=== PATIENT | female | born 1985 | race Caucasian/White ===

== ENCOUNTER 2016-10-24 07:24 | Emergency (ER) | payer OTHER ==
[~2016-10-24] VITALS: Ht 160 cm; Wt 54.4 kg
[2016-10-24 07:30] VITALS: BP 128/59
--- NOTE | 2016-10-24 07:32 | PHYS DOC ---
Adult General Chief Complaint Chief Complaint: ABDOMINAL PAIN HPI HPI Patient is a 31 year old female presenting to the emergency department for evaluation of right lower abdominal pain along with nausea. Pain started yesterday morning and has persisted and worsened. Pain is sharp with no radiation that causes her nausea but no vomiting diarrhea, hematuria vaginal bleeding or vaginal discharge. She says that she has some dysuria and that she took some laxatives and that made her have loose stools. She denies any prior abdominal surgeries and she denies any prior ovarian cyst. I didn't do an ultrasound to confirm bilateral flow and she does not have torsion. Patient will need follow-up with specialist as she may have polycystic ovarian disease and she may require further hormonal treatment and possibly surgery. I explained all this to the patient and told her to come back to the ER with worsening pain but right now she feels comfortable so she will be discharged with supportive treatment. Patient aware and agreeable with plan for discharge and verbalized understanding of the need for short-term follow-up and strict ER return precautions discussed including worsening pain fevers vomiting or other general concerns. Review of Systems Review of Systems Constitutional: Denies fever or chills [] Eyes: Denies change in visual acuity, redness, or eye pain [] HENT: Denies nasal congestion or sore throat [] Respiratory: Denies cough or shortness of breath [] Cardiovascular: No additional information not addressed in HPI [] GI: + abdominal pain, nausea. No vomiting, bloody stools or diarrhea [] : + dysuria. No hematuria [] Musculoskeletal: Denies back pain or joint pain [] Integument: Denies rash or skin lesions [] Neurologic: Denies headache, focal weakness or sensory changes [] Current Medications Current Medications Current Medications Medications (Trade) Dose Ordered Sig/Cale Start Time Stop Time Status Last Admin Dose Admin Ceftriaxone Sodium 50 ml @ 100 mls/hr 1X STAT 10/24/16 08:19 10/24/16 08:48 DC 10/24/16 08:54 100 MLS/HR Dextrose/Sodium Chloride 1,000 ml @ 0 mls/hr 1X ONCE 10/24/16 08:45 10/24/16 08:46 DC 10/24/16 08:51 1,000 MLS/HR Info (Do NOT chart on this entry -- for MONITORING) 1 each PRN DAILY PRN 10/24/16 08:00 10/26/16 07:59 Iohexol (Omnipaque 300 Mg/ml) 75 ml 1X ONCE 10/24/16 08:00 10/24/16 08:01 DC 10/24/16 08:19 75 ML Ketorolac Tromethamine (Toradol) 30 mg 1X ONCE 10/24/16 09:00 10/24/16 09:01 DC 10/24/16 09:23 30 MG Morphine Sulfate 5 mg 1X ONCE 10/24/16 07:45 10/24/16 07:46 DC 10/24/16 08:04 5 MG Ondansetron HCl (Zofran) 8 mg 1X ONCE 10/24/16 07:45 10/24/16 07:46 DC 10/24/16 08:03 8 MG Oxycodone/ Acetaminophen (Percocet 5/325) 2 tab 1X ONCE 10/24/16 09:00 10/24/16 09:01 DC 10/24/16 09:22 2 TAB Sodium Chloride 1,000 ml @ 1,000 mls/hr 1X ONCE 10/24/16 07:45 10/24/16 08:44 DC 10/24/16 08:00 1,000 MLS/HR Allergies Allergies Allergies Coded Allergies Type Severity Reaction Last Updated Verified aripiprazole Allergy Severe Anaphylaxis 10/24/16 Yes escitalopram Allergy Severe Anaphylaxis 10/24/16 Yes Physical Exam Physical Exam Constitutional: Well developed, well nourished, no acute distress, non-toxic appearance. [] HENT: Normocephalic, atraumatic, bilateral external ears normal, oropharynx moist, no oral exudates, nose normal. [] Eyes: PERRLA, EOMI, conjunctiva normal, no discharge. [] Neck: Normal range of motion, no tenderness, supple, no stridor. [] Cardiovascular:Heart rate regular rhythm, no murmur [] Lungs & Thorax: Bilateral breath sounds clear to auscultation [] Abdomen: Bowel sounds normal, soft, + RLQ tenderness, no masses, no pulsatile masses. Pain to palpation is more right adnexal. She has positive Rovsing sign. Skin: Warm, dry, no erythema, no rash. [] Back: No tenderness, no CVA tenderness. [] Extremities: No tenderness, no cyanosis, no clubbing, ROM intact, no edema. [] Neurologic: Alert and oriented X 3, normal motor function, normal sensory function, no focal deficits noted. [] Current Patient Data Vital Signs Vital Signs Date Time Temp Pulse Resp B/P (MAP) Pulse Ox O2 Delivery O2 Flow Rate FiO2 10/24/16 09:22 18 10/24/16 07:30 97.7 102 128/59 (82) 97 Room Air 97.7 Lab Values Laboratory Tests Test 10/24/16 06:45 10/24/16 07:37 10/24/16 07:44 POC Urine HCG, Qualitative Hcg negative (Negative) Urine Collection Type Unknown Urine Color Shannen Urine Clarity Cloudy Urine pH 5.5 Urine Specific Aston 1.025 Urine Protein 30 mg/dL (NEG-TRACE) Urine Glucose (UA) Negative mg/dL (NEG) Urine Ketones (Stick) >=80 mg/dL (NEG) Urine Blood Large (NEG) Urine Nitrite Negative (NEG) Urine Bilirubin Moderate (NEG) Urine Urobilinogen Dipstick 0.2 mg/dL (0.2 mg/dL) Urine Leukocyte Esterase Small (NEG) Urine RBC 11-20 /HPF (0-2) Urine WBC 20-40 /HPF (0-4) Urine Squamous Epithelial Cells Many /LPF Urine Bacteria Many /HPF (0-FEW) Urine Mucus Mod /LPF White Blood Count 24.5 x10^3/uL (4.0-11.0) H Red Blood Count 5.30 x10^6/uL (3.50-5.40) Hemoglobin 15.6 g/dL (12.0-15.5) H Hematocrit 47.9 % (36.0-47.0) H Mean Corpuscular Volume 90 fL (79-100) Mean Corpuscular Hemoglobin 29 pg (25-35) Mean Corpuscular Hemoglobin Concent 33 g/dL (31-37) Red Cell Distribution Width 16.7 % (11.5-14.5) H Platelet Count 243 x10^3/uL (140-400) Neutrophils (%) (Auto) 90 % (31-73) H Lymphocytes (%) (Auto) 4 % (24-48) L Monocytes (%) (Auto) 5 % (0-9) Eosinophils (%) (Auto) 0 % (0-3) Basophils (%) (Auto) 0 % (0-3) Neutrophils # (Auto) 22.1 x10^3uL (1.8-7.7) H Lymphocytes # (Auto) 1.1 x10^3/uL (1.0-4.8) Monocytes # (Auto) 1.2 x10^3/uL (0.0-1.1) H Eosinophils # (Auto) 0.0 x10^3/uL (0.0-0.7) Basophils # (Auto) 0.1 x10^3/uL (0.0-0.2) Platelet Estimate Pending Sodium Level 138 mmol/L (136-145) Potassium Level 3.7 mmol/L (3.5-5.1) Chloride Level 102 mmol/L (98-107) Carbon Dioxide Level 22 mmol/L (21-32) Anion Gap 14 (6-14) Blood Urea Nitrogen 12 mg/dL (7-20) Creatinine 0.8 mg/dL (0.6-1.0) Estimated GFR (Cockcroft-Gault) 82.6 BUN/Creatinine Ratio 15 (6-20) Glucose Level 116 mg/dL (70-99) H Calcium Level 9.2 mg/dL (8.5-10.1) Total Bilirubin 1.3 mg/dL (0.2-1.0) H Aspartate Amino Transferase (AST) 10 U/L (15-37) L Alanine Aminotransferase (ALT) 12 U/L (14-59) L Alkaline Phosphatase 79 U/L (46-116) Creatine Kinase 33 U/L (26-192) Total Protein 8.7 g/dL (6.4-8.2) H Albumin 4.2 g/dL (3.4-5.0) Albumin/Globulin Ratio 0.9 (1.0-1.7) L Lipase 101 U/L (73-393) Laboratory Tests 10/24/16 07:44 Laboratory Tests 10/24/16 07:44 EKG EKG [] Radiology/Procedures Radiology/Procedures Indication right lower quadrant pain for one day with nausea vomiting and diarrhea. Axial images through the abdomen and pelvis were obtained. No oral contrast was administered. Approximately 75 cc of Omnipaque 300 was administered. No prior imaging is available. The lung bases are clear. The liver and spleen appear unremarkable. The gallbladder appears grossly normal. No adrenal masses are seen. There are low-density masses seen associated with both kidneys compatible with cysts. No pancreatic pathology is seen. Acute finding in the abdomen is not apparent. The right colon, particularly the cecum, is fluid-filled. Definite wall thickening or evidence of colitis is not seen. The transverse, descending and sigmoid colon appear unremarkable. There are multiple cysts seen associated with both ovaries right somewhat greater than left. Findings are suggestive of polycystic ovarian disease. The appendix is probably seen in the right lower quadrant. It appears quite small and short in nature. Secondary signs suggesting appendicitis are not seen. IMPRESSION: Multiple enlarged ovarian cysts suggesting polycystic ovarian disease. Fluid-filled right colon. No definite appendiceal pathology seen. Renal cysts. DICTATED and SIGNED BY: SHANNA CORREA MD DATE: 10/24/16 0842 Indication pelvic pain. Ovarian cysts. Assess for torsion. Transabdominal scans were obtained. Transvaginal scans were not. HCG status is uncertain but for the purposes of this dictation will be assumed to be negative. Note is made of a CT examination of the abdomen and pelvis immediately prior to the ultrasound. The uterus measures approximately 9 x 6.7 x 4.6 cm and appears unremarkable. Endometrial thickness measures approximately 1 cm. Both ovaries are enlarged. The right ovary measures approximately 9.7 x 2.9 x 4.9 cm and the left 6.6 x 3.7 x 4.2 cm. Multiple cysts are seen associated with the ovaries compatible with the findings on CT. The largest cyst on the right measures approximately 5 cm and the largest cyst on the left approximately 3.5 cm. There is normal blood flow to the ovaries (torsion can never be entirely excluded on the basis of ultrasound). The morphologic appearance of the ovaries is not suggestive of torsion. IMPRESSION: Enlarged ovaries with multiple cysts suggesting polycystic ovarian disease.. No definite evidence of torsion DICTATED and SIGNED BY: SHANNA CORREA MD DATE: 10/24/16 0932 Course & Med Decision Making Course & Med Decision Making Patient with right lower quadrant pain in addition to nausea. Given patient still has her appendix we'll go ahead and do a CT treat symptoms and reassess. Dragon Disclaimer Dragon Disclaimer This electronic medical record was generated, in whole or in part, using a voice recognition dictation system. Departure Departure Impression: Primary Impression: Ovarian cyst Additional Impressions: Abdominal pain Leukocytosis UTI (urinary tract infection) Ketonuria Disposition: HOME, SELF-CARE Condition: GOOD Referrals: ANDREAS NGUYỄN MD, MARGARET A MD Patient Instructions: Ovarian Cyst Additional Instructions: YOU NEED TO FOLLOW WITH A PCP AND BUSINESS APPLICATIONS ANALYST. DRINK PLENTY OF FLUIDS AND EAT A GOOD DIET. TAKE 400MG OF OTC IBUPROFEN EVERY 6 HOURS AND THE PERCOCET FOR BREAKTHROUGH PAIN. COME BACK TO THE ED WITH ANY NEW OR WORSENING PAIN, FEVERS, VOMITING, OR OTHER GENERAL CONCERNS. THANK YOU! Scripts Ciprofloxacin Hcl (CIPROFLOXACIN HCL) 250 Mg Tablet 1 TAB PO BID, #6 TAB Prov: RAMONE MARLOW DO 10/24/16 Ondansetron (ZOFRAN ODT) 4 Mg Tab.rapdis 4 MG PO BID Y for NAUSEA/VOMITING, #10 TAB Prov: RAMONE MARLOW DO 10/24/16 Oxycodone/Apap 5-325 (PERCOCET 5-325 MG TABLET) 1 Each Tablet 1 TAB PO PRN Q6HRS Y for PAIN, #20 TAB 0 Refills Prov: RAMONE MARLOW DO 10/24/16 Problem Qualifiers RAMONE MARLOW DO Oct 24, 2016 07:32
[2016-10-24] MEDS ORDERED: MORPHINE SULFATE 10 MG/ML VIAL. IV ONE (07:45)
[2016-10-24] MEDS ORDERED: IV NORMAL SALINE 1000ML BAG 1,000 ML IV ONE (07:45)
[2016-10-24] MEDS ORDERED: ONDANSETRON PF 4 MG/2 ML VIAL. IV ONE (07:45)
[2016-10-24 07:51] LABS: BASO # 0.1 x10^3/uL (0.0-0.2); BASO % 0 % (0-3); EOS % 0 % (0-3); HEMATOCRIT 47.9 % (36.0-47.0); HEMOGLOBIN 15.6 g/dL (12.0-15.5); LYMPH # 1.1 x10^3/uL (1.0-4.8); LYMPH % 4 % (24-48); MEAN CORPUSCULAR HEMOGLOBIN 29 pg (25-35); MEAN CORPUSCULAR HGB CONC 33 g/dL (31-37); MEAN CORPUSCULAR VOLUME 90 fL (79-100); MONO % 5 % (0-9); NEUT % 90 % (31-73); PLATELET COUNT 243 x10^3/uL (140-400); RED CELL DISTRIBUTION WIDTH 16.7 % (11.5-14.5); WHITE BLOOD COUNT 24.5 x10^3/uL (4.0-11.0)
[2016-10-24 07:52] LABS: BILIRUBIN,URINE MODERATE (NEG); GLUCOSE,URINE NEGATIVE (NEG); NITRITE,URINE NEGATIVE (NEG); PH,URINE 5.5; PROTEIN,URINE 30 mg/dL (NEG-TRACE); UROBILINOGEN,URINE 0.2 mg/dL (0.2 mg/dL)
[2016-10-24] MEDS ORDERED: CONTRAST GIVEN MC PRN (08:00)
[2016-10-24] MEDS ORDERED: IOHEXOL 300 MG/ML 75 ML VIAL IV ONE (08:00)
[2016-10-24 08:03] LABS: CALCIUM 9.2 mg/dL (8.5-10.1); CREATININE 0.8 mg/dL (0.6-1.0); GFR 82.6; POTASSIUM 3.7 mmol/L (3.5-5.1)
[2016-10-24 08:11] LABS: ALBUMIN 4.2 g/dL (3.4-5.0); ALBUMIN/GLOBULIN RATIO 0.9 (1.0-1.7); TOTAL BILIRUBIN 1.3 mg/dL (0.2-1.0); TOTAL PROTEIN 8.7 g/dL (6.4-8.2)
[2016-10-24 08:14] LABS: BACTERIA,URINE MANY /HPF (0-FEW); SQUAMOUS EPITHELIAL CELL,UR MANY /LPF; WBC,URINE 20-40 /HPF (0-4)
[2016-10-24] MEDS ORDERED: IV DEXTROSE 5 %-0.45 % NACL 500 ML IV ONE (08:30)
[2016-10-24] MEDS ORDERED: IV DEXTROSE 5 %-0.45 % NACL 1,000 ML IV ONE (08:45)
[2016-10-24] MEDS ORDERED: oxyCODONE/APAP 5/325 1 TAB TABLET PO ONE (09:00)
[2016-10-24] MEDS ORDERED: KETOROLAC TROMETHAMINE 30 MG/ML INJ. IV ONE (09:00)
--- NOTE | 2016-10-24 09:00 | RAD ---
Indication right lower quadrant pain for one day with nausea vomiting and diarrhea. Axial images through the abdomen and pelvis were obtained. No oral contrast was administered. Approximately 75 cc of Omnipaque 300 was administered. No prior imaging is available. The lung bases are clear. The liver and spleen appear unremarkable. The gallbladder appears grossly normal. No adrenal masses are seen. There are low-density masses seen associated with both kidneys compatible with cysts. No pancreatic pathology is seen. Acute finding in the abdomen is not apparent. The right colon, particularly the cecum, is fluid-filled. Definite wall thickening or evidence of colitis is not seen. The transverse, descending and sigmoid colon appear unremarkable. There are multiple cysts seen associated with both ovaries right somewhat greater than left. Findings are suggestive of polycystic ovarian disease. The appendix is probably seen in the right lower quadrant. It appears quite small and short in nature. Secondary signs suggesting appendicitis are not seen. IMPRESSION: Multiple enlarged ovarian cysts suggesting polycystic ovarian disease. Fluid-filled right colon. No definite appendiceal pathology seen. Renal cysts.
--- NOTE | 2016-10-24 09:34 | ACF ---
Admission Forms Criteria Admission Criteria Met?: Yes JERMAN CADE Oct 24, 2016 09:34
--- NOTE | 2016-10-24 09:38 | RAD ---
Indication pelvic pain. Ovarian cysts. Assess for torsion. Transabdominal scans were obtained. Transvaginal scans were not. HCG status is uncertain but for the purposes of this dictation will be assumed to be negative. Note is made of a CT examination of the abdomen and pelvis immediately prior to the ultrasound. The uterus measures approximately 9 x 6.7 x 4.6 cm and appears unremarkable. Endometrial thickness measures approximately 1 cm. Both ovaries are enlarged. The right ovary measures approximately 9.7 x 2.9 x 4.9 cm and the left 6.6 x 3.7 x 4.2 cm. Multiple cysts are seen associated with the ovaries compatible with the findings on CT. The largest cyst on the right measures approximately 5 cm and the largest cyst on the left approximately 3.5 cm. There is normal blood flow to the ovaries (torsion can never be entirely excluded on the basis of ultrasound). The morphologic appearance of the ovaries is not suggestive of torsion. IMPRESSION: Enlarged ovaries with multiple cysts suggesting polycystic ovarian disease.. No definite evidence of torsion
[2016-10-24] MEDS ORDERED: OXYC-323 PO (09:57)
[2016-10-24] MEDS ORDERED: ONDA4TAB10 PO (09:57)
[2016-10-24] MEDS ORDERED: CIPR250T PO (09:57)
[2016-10-24 10:15] LABS: PLT ESTIMATE ADEQUATE (ADEQUATE)
--- NOTE | 2016-10-26 16:40 | VNOTE ---
CALL BACK NOTE CALL BACK Microbiology 10/24/16 Urine Culture - Final, Complete 10/24/16 Urine Culture Result 1 (ROBERTO) - Final, Complete 10/24/16 Urine Culture Result 2 (ROBERTO) - Final, Complete Patient was notified of the urine being positive for group B strep. Patient states she has an [facility] appointment on Wednesday. SHANNON MARIE APRN Oct 26, 2016 16:40
== END 2016-10-24 10:20 | disposition home or self-care (01) ==
LOC: ER 07:24
DX: N83.202 Unspecified ovarian cyst, left side (principal); N83.201 Unspecified ovarian cyst, right side; D72.829 Elevated white blood cell count, unspecified; N39.0 Urinary tract infection, site not specified; R82.4 Acetonuria; Z88.8 Allergy status to other drugs, medicaments and biological substances
CPT/HCPCS: 36415; 74177; 76856; 80053; 81001; 81025; 82550; 83690; 85007; 85027; 87086; 96361; 96365; 96375; 99285; J0690; J1885; J2270; J2405; J7030; Q9967

== ENCOUNTER → 2017-01-27 | Outpatient (CLI) | payer OTHER ==
[~2017-01-27] MED LIST: CIPR250T PO; DIATRIZOATE MEGLUMINE 18% 300 ML SOLUTION. ONE; ONDA4TAB10 PO; OXYC-323 PO
[2017-01-27] MEDS: DIATRIZOATE MEGLUMINE 18% 300 ML SOLUTION. PO ONE (10:30)
--- NOTE | 2017-01-27 11:27 | RAD ---
Cystogram, 01/27/2017: History: Check for bladder leak The patient presented with a Wilkes catheter in place. The bladder was filled with contrast in a retrograde manner via drip infusion. No bladder abnormality or leak was evident. A postdrainage image is unremarkable. 1.5 minutes of fluoroscopy time was utilized. 10 fluoroscopic spot images were recorded. As requested, we then removed the Wilkes catheter prior to the patient leaving the department. IMPRESSION: No significant abnormality is detected.
== END | disposition home or self-care (01) ==
LOC: RAD 15:08
PROVIDERS: ATTEND Specialist
DX: R32 Unspecified urinary incontinence (principal)
CPT/HCPCS: 74430